=== PATIENT | female | born 1945 | race Caucasian/White ===

== ENCOUNTER 2023-09-30 13:00 | Outpatient (RCR) | payer MEDICARE, OTHER, SELFPAY ==
--- NOTE | 2023-05-08 14:46 | PT.OPEX ---
PT [place] Outpatient Eval PT [facility] Outpatient Eval Start: 05/07/23 16:50 Freq: Status: Active Protocol: Document 05/08/23 12:18 MLS (Rec: 05/08/23 14:43 MLS [id number]) E-signed By Yeimi Ho DPT Physical Therapy Outpatient Evaluation Insurance Information Recert Due Date 08/05/23 Insurance Name Medicare B Insurance Information/Comments Medical Diagnosis M17.12 Unilateral primary osteoarthritis left knee Treating Diagnosis M25.562 Pain in left knee Referring MD Demetrio Pavon M.D. Subjective Subjective Patient comes to physical therapy with reports of left knee pain that started this past January. She reports that it started with pain behind her left knee. She states that she was sitting on a window bench for long periods of time, while waiting for someone at the hospital. She had been there five days in a row, and that irritated her knee. In February, she had an ultrasound to rule out a blood clot and bakers cyst. It was negative for significant findings. According to the patient, she then had xrays on both knees, which showed significant OA in her left knee. She reports that she had a cortisone shot on February 26, which helped to decrease the intensity of her pain. She states that she does get pain in the back of her left thigh at times, that radiates from her knee up to her left glut. She reports her pain as dull and achy, not sharp not stabbing. No complaints of numbness and tingling. She reports that she did use a cane when it was bad, but since then has not been using it. She states she keeps it in the back of her car for walking longer distances as needed. 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 She reports that she currently is not exercising but does have a recumbent bike at home. 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 [employer] Precautions Treatment Precautions/Contraindications PMH: hysterectomy, controlled high blood pressure, gallbladder surgery, arthritis Weight Bearing Status Full Weight Bearing Therapy Limitations/Systems Review Not Limited Objective Other/Pertinent Objective GAIT/FUNCTIONAL MOBILITY Single leg stance: 3 second stance, instability noted Squat: Mild pain in left knee with mini squat Left knee valgus KNEE ROM Right knee: 0-130 Left knee: 0-120 Pain in left knee with heel walking No pain with toe walking HIP ROM Flexion: WNL Extension: WNL Internal Rotation: WNL External Rotation: WNL Abduction: WNL LLE MMT: Hip flexion: R 4-/5 L 4-/5 Hip abduction: R 4-/5 L 4-/5 Hip extension: R 5/5 L 5/5 Knee flexion: R 5/5 L 5/5 Knee extension: R 4+/5 L 4/5 SPECIAL TEST -Anterior drawer: negative -Posterior Drawer: negative -Joint line tenderness: tenderness to left lateral joint line and inferior patella -March Compression: negative TX: Access Code: [email or web address] URL: [email or web address] Date: 05/08/2023 Prepared by: Yeimi Ho Exercises - Supine Quad Set - 1 x daily - 4 x weekly - 2 sets - 10 reps - 5 hold - Supine Active Straight Leg Raise - 1 x daily - 4 x weekly - 2 sets - 10 reps - Supine Heel Slides - 1 x daily - 4 x weekly - 2 sets - 10 reps - Supine Gluteal Sets - 1 x daily - 4 x weekly - 2 sets - 10 reps - 5 hold - Supine Bridge - 1 x daily - 4 x weekly - 2 sets - 10 reps - Sidelying Hip Abduction - 1 x daily - 4 x weekly - 3 sets - 10 reps Functional Test Performed & Score 44/80 A score increase of 6 points shows a significant improvement in lower extremity function. Assessment Assessment/Impression Patient is a 78 year old female presenting to physical therapy for evaluation and treatment of left knee pain. Patient presents with significant osteoarthritis in her left knee. 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 Patient appears motivated to participate in physical therapy and presents with a good prognosis to improve mobility, strength, proprioception and return to functional activities with skilled physical therapy intervention. Patient would benefit from skilled physical therapy interventions to facilitate return to prior level of function, improve overall activity tolerance and address any remaining impairments. Primary Functional Limitations endurance, walking, standing, lower extremity weakness Plan of Care Rehabilitation Potential Good Physical Therapy Goals STG: Patient is able to ride her recumbent bike for 20 minutes with <1/10 pain. Patient will demonstrate independence in performance of home exercise program with the use of video and/or handouts in order to optimize functional mobility and reduce risk for re-injury. Patient will report pain levels <1/10 with all activities in order to improve functional mobility at home, work and during functional leisure activities. LTG: Patient will be able to stand and shop for one hour without pain. Patient will be able to ascend /descend 1 flight of stairs with <1/10 pain. Patient will be able to walk up to one mile without pain. Coordination/Communication With Referral Source Treatment Plan/Direct Interventions Gait Training,Manual Therapy, Therapeutic Activities, Therapeutic Exercises Frequency/Duration 2x/week for 3-4 weeks with progression to 1x/week and on own as tolerated Patient Will Be Discharged From Therapy Independently Progressing Evaluation Billing Untimed Code Treatment Minutes 30 Complexity Low Certification Information Physician Comment/Change : Physician NPI Number #
== END 2023-10-03 11:24 | disposition home or self-care (01) ==
PROVIDERS: PCP Family Medicine; Visit Provider Orthopaedic Surgery Sports Medicine
DX: M17.12 Unilateral primary osteoarthritis, left knee (principal); M25.562 Pain in left knee; Z51.89 Encounter for other specified aftercare
CPT/HCPCS: 97110; 97140; 97161

== ENCOUNTER 2023-12-23 06:58 | Day surgery (SDC) | payer MEDICARE, OTHER, SELFPAY ==
[2023-12-23] VITALS (24 sets, daily range): BP systolic 90–146; BP diastolic 55–78; PULSE 49–60; RESP 12–18; TEMP 35.3–36.9; O2SAT 88–96; BMI 36.0
--- OUTSIDE RECORDS SUMMARY | 2023-12-23 07:01 | XMS_ITS | Clinical Summary ---
Author Name Unknown Organization [facility] Address [place], [place] [address] Care Team Providers Care Talent Acquisition Relationship Manager Name Role Phone Gerry Russo Windy Unavailable [phone] Liz Dee MD Primary Care Provider Allergies Active Allergy Reactions Criticality Noted Date Comments Oxymetazoline Syncope Pseudoephedrine Intolerance-Can't Take Unlisted Allergen (Include Detail In Comments) 10/03/2009 Dial Soap Medications Medication Sig Dispensed Refills Start Date End Date Status MULTIVITAMIN ORAL daily 0 Active ASPIRIN 81 MG TAB, DELAYED RELEASE take 1 tablet (81mg) by oral route once daily 0 Active CALCIUM 600 + D(3) 600 MG-125 UNIT TAB Take 2 tablets daily 0 Active cholecalciferol (VITAMIN D) 1,000 unit capsuleIndications:V itamin D deficiency Take 2 capsules by mouth once daily. 0 11/05/2011 Active omega-3 fatty acids-vitamin E (FISH OIL) 1,000 mg CapIndications:Low HDL (under 40) Take 1 capsule by mouth 2 times daily. 0 11/05/2011 Active albuterol HFA (PRO-AIR; VENTOLIN; PROVENTIL) 90 mcg/actuation inhalerIndications:B ronchitis with bronchospasm INHALE 2 PUFFS BY MOUTH EVERY 4 HOURS IF NEEDED FOR WHEEZING (COUGH). 8.5 Each 11/20/2022 Active atenoloL (TENORMIN) 100 mg tabletIndications:Es sential hypertension Take 1 Tablet (100 mg) by mouth once daily. 90 Tablet 3 05/08/2023 Active FLUoxetine (PROZAC) 10 mg capsuleIndications:A nxiety Take 1 Capsule (10 mg) by mouth every morning. Take with 20 mg for a total dose of 30 mg daily 90 Capsule 3 05/08/2023 Active FLUoxetine (PROZAC) 20 mg capsuleIndications:A nxiety Take 1 Capsule (20 mg) by mouth every morning. TAKE 1 CAPSULE EVERY MORNING WITH 10 MG CAPSULE FOR A TOTAL OF 30 MG DAILY. 90 Capsule 3 05/08/2023 Active lisinopriL (PRINIVIL; ZESTRIL) 40 mg tabletIndications:Es sential hypertension Take 1 Tablet (40 mg) by mouth once daily. 90 Tablet 3 05/08/2023 Active pravastatin (PRAVACHOL) 40 mg tabletIndications:Hy perlipidemia, unspecified hyperlipidemia type Take 1 Tablet (40 mg) by mouth at bedtime. 90 Tablet 3 05/08/2023 Active benzonatate (TESSALON) 200 mg capsuleIndications:C ough, unspecified type Take 1 Capsule (200 mg) by mouth 3 times daily if needed for Cough. 21 Capsule 12/16/2023 Active solifenacin (VESICARE) 10 mg tablet Take 1 tablet(s) every day by oral route. 10/01/2023 Active tolterodine (DETROL LA) 2 mg Extended-Release capsule Active tolterodine (DETROL LA) 4 mg Extended-Release capsuleIndications:O veractive bladder Take 1 Capsule (4 mg) by mouth once daily. 30 Capsule 06/17/2023 4 Discontinue d(*Patient states no longer taking) Active Problems Problem Noted Date Diagnosed Date Low HDL (under 40) 11/05/2011 Mole (skin) 04/17/2011 ACP (advance care planning) 10/23/2010 Overview: Discussed ACP 10/23/2010. Referred 11/05/2011 Dermatophytosis of unspecified site 10/03/2009 GERD (gastroesophageal reflux disease) 0 Overview: Does well with occasional Zantac. ABDOMINAL MASS( Epigastric) 09/28/2008 Overview: See us and CT of 09/2008. 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 10/23/2010 Unspecified essential hypertension Sensorineural hearing loss, bilateral Overview: right ear; Severe obesity (BMI 35.0-39.9) with comorbidity Encounters Date Type Department Care Team Description 12/19/2023 9:20 AM CDT Preop Visit [facility] [address] [place] [address] Javi Larry DO Preoperative Exam (LEFT knee replacement - 12/22 - [facility] ) 12/19/2023 Travel 12/16/2023 2:40 PM CDT Office Visit [facility] [address] [place] [address] Page Toledo MD Cough (1 week); Sinus Problem (1 week) 12/16/2023 Travel from Last 3 Months Immunizations Name Administration Dates Next Due AMB INFLUENZA IIV3 (AGE 65+ YRS) PF (Flu Clinic Only) 05/18/2019,06/05/2017 AMB Influenza, IIV4 PF (=>6 mos Flulaval,Fluzone Fluarix)(Flu Clinic Only) 05/14/2014 Amb Influenza, Inact (High-d ose) (Flu Clinic Only) 06/08/2016,05/25/2015,05/14/2014 Amb Influenza, Inactivated A IIV4 (Age 65+ Years) Preserv Free 06/13/2020 COVID-19 Vaccine Spikevax (M oderna 50mcg/0.5mL) 12YO+ [id number] Formula PF 06/05/2023 COVID-19 vaccine (Moderna 100mcg/0.5mL) PF, MDV 06/22/2021 COVID-19 vaccine (Pfizer-Bio NTech 30mcg/0.3mL) 12YO+ BIVALENT PF, MDV 05/03/2022 Influenza Virus, Unspecified 05/25/2015 Influenza, High-dose Inactivated 06/08/2016 Influenza, IIV3 (Age 6-35 mos) 3,05/13/2012,05/30/2011,2009 Influenza, IIV3 (Age >=3 years) 05/19/20 13,05/05/2012,05/30/2011,2009,05/05/2009,06/05/2008 Influenza, IIV4 05/14/2014 Influenza, Inactivated AIIV4 (Age 65+ Years) Preserv Free 05/08/2023,05/03/2022,04/13/2021 Influenza, Inactivated IIV3 (Age 65+ Years) Preserv Free 06/04/2018 Pneumococcal Poly,23-Valent (Pneumovax) 11/03/2012 Pneumococcal conj 13-Valent (Prevnar 13) 11/30/2014 Tdap 12/05/2016,11/11/2006 Tdap, Unspecified 12/05/2016 Zoster (Shingrix-RZV, recombinant) 09/22/2018, Zoster (Zostavax-ZVL, live) 09/24/2007 Family History Medical History Relation Name Comments Hypertension Brother 1 Orlin Hypertension Brother 2 [place] Cancer Father Kavon Hypertension Father Kavon Cancer-breast Mother Mojgan Moore Hypertension Mother Mojgan Moore Hypertension Sister Liza Anesthesia Problem No Family History Blood Disease No Family History Relation Name Status Comments Brother 1 Orlin Alive Brother 2 [place] Alive Father Kavon (Age 70) lung cance r Mother Mojgan Moore Alive breast cancer Sister Liza Alive Social History Tobacco Use Types Packs/Day Years Used Date Smoking Tobacco: Former Cigarettes 0.5 19 0 12/09/1965 - 08/05/1984 Smokeless Tobacco: Never Tobacco Cessation:Counseling Given: Yes Alcohol Use Standard Drinks/Week Comments Yes 2 (1 standard drink = 0.6 oz pur e alcohol) occasional PHQ-2 Answer Date Recorded PHQ-2 TOTAL SCORE 0 05/08/2023 Social Connections Answer Date Recorded Frequency of Communication with Friends and Fami ly 0 05/08/2023 Financial Resource Strain Answer Date R ecorded Difficulty of Paying Living Expenses 3 05/08/2023 Difficulty of Paying Living Expenses Not on file 05/08/2023 Food Insecurity Answer Date Recorded Worried About Running Out of Food in the Last Ye ar 1 05/08/2023 Transportation Needs Answer Date Record ed Lack of Transportation (Medical) 1 05/08/2023 Housing Stability Answer Date Recorded Unable to Pay for Housing in the Last Year 1 05/08/2023 Sex and Gender Information Value Date Recorded Sex Assigned at Not on file Gender Identity Not on file Sexual Orientation Not on file Obstetrics History Para Term AB IAB SAB Ectopic Multiple Livin g Live Births 0 0 0 0 0 0 0 0 0 0 Comments One adopted daughter Last Filed Vital Signs Vital Sign Reading Time Taken Comments Blood Pressure 154/75 12/19/2023 9:38 AM CDT Pulse 55 12/19/2023 9:35 AM CDT Temperature 36.7 ??C (98 ??F) 02/07/2023 2:19 PM CDT Respiratory Rate 18 12/05/2018 10:5 2 AM CDT Oxygen Saturation 98% 12/19/2023 9:35 AM CDT Inhaled Oxygen Concentration - - Weight 98.3 kg (216 lb 11.2 oz) 12/19/2023 9:35 AM CDT Height 166.4 cm (5' 5.5) 12/19/2023 9:35 AM CDT Body Mass Index 35.51 12/19/2023 9:35 AM CDT Plan of Treatment Health Maintenance Due Date Last Done Comments Influenza for age 65+ 04/05/2024 05/08/2023 , 05/03/2022, 04/13/2021, Additional history exists Depression screening for age 12+ 05/08/2024 05/08/2023, 05/08/2023, 05/03/2022, Additional history exists Medicare Wellness for age 65+ 05/08/2024, 05/03/2022, 04/13/2021, Additional history exists BMI (ht and wt on same day) for age 18+ 12/18/2024 12/19/2023, 06/05/2023, 05/08/2023, Additional history exists Tetanus booster 12/05/2026 12/05/2016, 0 10/2016, 11/11/2006 Pneumococcal series for age 65+ Completed 5, 11/03/2012 Tdap Completed 12/05/2016, 10/2016, 11/11/2006 Hepatitis C screening for ag e 18-79 Completed 12/23/2017 Zoster (shingles) series for age 50+ Completed 09/22/2018, 06/23/2018, 09/24/2007 DEXA/DXA scan for age 65+ Completed 2018, 11/10/2013, 09/30/2007 COVID-19 vaccine series Completed 06/05/20, 05/03/2022, 06/22/2021, Additional history exists Procedures Procedure Name Priority Date/Time Associated Diagnosis Comments ID ECG ROUTINE ECG W/LEAST 12 LDS W/I&R Routine 12/20/2023 12:41 PM CDT Pre-op evaluation ID READING EKG - NO CHARGE, COMP ONLY Routine 12/20/2023 12:40 PM CDT Pre-op evaluation POTASSIUM Routine 12/19/2023 10:02 AM CDT Pre-op evaluation HEMOGLOBIN Routine 12/19/2023 10:02 AM CDT Pre-op evaluation XR DXA BONE DENSITY 2 SITES AXIAL Routine 12/08/2018 11:36 AM CDT Menopause ANTI HCV Routine 12/23/2017 8:45 AM CDT Need for hepatitis C screening test from Last 3 Months or Most Recently Relevant to Health Maintenance Results * ID ECG ROUTINE ECG W/LEAST 12 LDS W/I&R (12/20/2023 12:41 PM CDT) Javi Larry DO [facility] - CARDI[facility]ASC[facility] * ID READING EKG - NO CHARGE, COMP ONLY (12/20/2023 12:40 PM CDT) Javi Larry DO PB - PROVIDER READIN GS * HEMOGLOBIN (12/19/2023 10:02 AM CDT) HEMOGLOBIN 13.2 12.0 - 16.0 g/dL 12/19/2023 10:17 AM CDT [facility] MCV 88 80 - 100 fL 12/19/2023 10:17 AM CDT [facility] Blood BLOOD SPECIMEN / Unknown Venipuncture / Unknown 12/19/2023 10:02 AM CDT 12/19/2023 10:03 AM CDT Javi Larry DO HEMATOLOGY [facility] [address] [place] [address], * POTASSIUM (12/19/2023 10:02 AM CDT) Pathologist [facility] POTASSIUM 4.2 3.5 - 5.1 mmol/L 12/19/2023 6:03 PM CDT [facility] Blood BLOOD SPECIMEN / Unknown Venipuncture / Unknown 12/19/2023 10:02 AM CDT 12/19/2023 10:03 AM CDT Javi Larry DO [facility] [address] [address], [place] * XR DXA BONE DENSITY 2 SITES AXIAL (12/08/2018 11:36 AM CDT) Anatomical Region Laterality Modality Spine, HIPS, HIPL, HIPR Other Narrative 12/17/2018 7:46 AM CDT Please see scanned document for results of this study. Liz Dee MD DEXA * ANTI HCV [[id number]] (12/23/2017 8:45 AM CDT) HEPATITIS C ANTIBODY Non-React marvin Non-React marvin 12/23/2017 4:40 PM CDT [facility] Comment:Antibodies to HCV no t detected; does not exclude the possibility of exposure to HCV. Blood BLOOD SPECIMEN / Unknown Venipuncture / Unknown 12/23/2017 8:45 AM CDT 12/23/2017 8:45 AM CDT Liz Dee MD SEND OUTS [facility] [address] [place] [address], from Last 3 Months or Most Recently Relevant to Health Maintenance Advance Directives Documents on File Type Date Recorded Patient Window Trimmer Expl anation Healthcare Directive 12/22/2018 9:53 AM HE ALTH CARE DIRECTIVE, [facility], 12/18/18 Care Teams Talent Acquisition Relationship Manager Relationship Specialty Start Date End Date Liz Dee MD [address] [place] [address] PCP - General Family Practice 11/16/13 Gerry Russo [address] [place] [id number] Assistant Statistician 11/05/11
--- OUTSIDE RECORDS SUMMARY | 2023-12-23 07:02 | XMS_ITS | Continuity of Care Document ---
Author Name Unknown Address [address] [place] [address] Phone [phone] Organization [facility] [place] Address [address] [place] [address] Care Team Providers Care Performance Specialist Name Role Phone CYNTHIA CHA Primary Care Provider [phone] Assessment No assessment recorded. Plan of Treatment Reminders Order Date Submit Date Provider Last Modified By Organization Details Last Modified Time Details Appointments None recorded. Lab urinalysis, dipstick 2023 024 [facility], [address], [address], [place], [address], 4 11:42:48 urinalysis, microscopic 2023 024 [facility], [address], [address], [place], [address], 4 11:42:50 Referral None recorded. Procedures None recorded. Surgeries None recorded. Imaging None recorded. Medication Orders solifenacin 10 mg tablet 2023 024 [email or web address] 2 [facility], [address], [place], [address], 11:05:54 Patient TargetsNo targets recorded. Patient Instructions Encounter Date Encounter Id Patient Instructions Last Modified By Organization Details Last Modified Time 10/01/2023 [id number] Microscopic Hematuria: -05/02/23: UA 3-5 RBC's, no WBC's/bacteria/epi thelial cells; UC <10,000 CFU/mL multiple organisms -CTU was done that showed punctate nonobstructing stones and mildly enlarging lower pole left renal cyst measuring 3 cm previously 1.4 cm. -Cystoscopy normal 09/2023 -In case of negative results, she would need her next UA check in one year and return in 3-5 years unless she develops additional voiding symptoms including gross hematuria -For persistent or recurrent asymptomatic microhematuria after initial negative urologic work-up, repeat evaluation within three to five years should be considered Urinary frequency and nocturia: -Reviewed overactive bladder care pathway -Previously failed tolterodine. -She was started on solifenacin 10mg daily at her last appointment which is working well for her. Refill sent to pharmacy. Follow up in one year, sooner if issues. [email or web address] Not available 10/01/2023 11:06:29 Reason for Referral Referring Physician: Caro Alvarez, Urology, Encounter Date: 06/25/2023 Problems Name Status Onset Date Resolution Date Notes Provider Name and Address Organization Details Recorded Time Microscopic hematuria Active 024 Bridger Meath null, [facility] 09/09/2023 16:27:39 Nocturia Active 024 Bridger Meath null, [facility] 09/09/2023 16:27:44 Increased frequency of urination Active 024 Bridger Meath null, [facility] 09/09/2023 16:27:49 Hypertensive disorder Active 024 Bridger Meath null, [facility] 09/09/2023 16:31:15 Dermatophytosis Active 024 Bridger Meath null, [facility] 09/09/2023 16:31:22 Gastroesophageal reflux disease Active 024 Bridger Meath null, [facility] 09/09/2023 16:31:30 Sensorineural hearing loss of bilateral ears Active 024 Bridger Meath null, [facility] 09/09/2023 16:31:41 Osteoarthritis Active 024 Bridger Meath null, [facility] 09/09/2023 16:31:52 Problem Notes None recorded. Procedures Surgical History Date Name Laterality Status Provider Name and Address Organization Details Recorded Time 10/01/19 24 COMPLEX VISIT completed MAY CONNER [address] [place] [address],[address], [address], [facility] 09/23/2023 14:52:35 10/01/19 24 Bladder Scan completed Emmanuelle edmondson [facility] 10/01/2023 10:55:57 09/17/19 24 Cystoscopy- female completed Agustín Oneal MD [address] [place] [address],[address], [address], [facility] 09/17/2023 14:47:11 06/25/20 23 Past Data Reviewed completed MAY CONNER [address] [place] [address],[address], [place], [address], [facility] 06/19/2023 16:34:09 06/25/20 23 In and Out Catheterization- female completed MAY CONNER [address] [place] [address],[address], [place], [address], [facility] 06/25/2023 15:51:49 04/14/20 13 Diagnostic colonoscopy completed Not Available Health Note 06/23/2023 20:23:44 Laparoscopic cholecystectomy completed Not Available Health Note 06/23/2023 20:23:44 Partial hysterectomy completed Not Available Health Note 06/23/2023 20:23:44 Imaging Results None recorded. Procedure Notes None recorded. Medical Equipment None Reported. Allergies No known drug allergies Medications Name Sig Start Date Stop Date Status Note LastModified by Organization Details LastModified Time tolterodi ne ER 2 mg capsule,e xtended release 24 hr 09/09 completed Not Available Not Available Not Available pravastat in 40 mg tablet 40mg 1/day active Not Available Not Available No t Available atenolol 100 mg tablet 100mg 1/day active Not Available Not Available No t Available tolterodi ne ER 4 mg capsule,e xtended release 24 hr 10/01 completed HN: Patient reports no longer taking Not Available Not Available Not Available prednison e 20 mg tablet 09/09 completed Not Available Not Available Not Available benzonata te 100 mg capsule 09/09 completed Not Available Not Available Not Available fluoxetin e 10 mg capsule 09/09 completed Not Available Not Available Not Available codeine 10 mg-guaife nesin 100 mg/5 mL oral liquid TAKE 5 TO 10 ML BY MOUTH EVERY 6 HOURS NEEDED FOR COUGH 09/09 completed Not Available Not Available Not Available methylpre dnisolone 4 mg tablets in a dose pack FOLLOW PACKAGE DIRECTIO NS 09/09 completed Not Available Not Available Not Available albuterol sulfate HFA 90 mcg/actua tion aerosol inhaler INHALE 2 PUFFS BY MOUTH EVERY 4 HOURS IF NEEDED FOR WHEEZING (COUGH). active Not Available Not Available No t Available lisinopri l 40 mg tablet active Not Available Not Available Not Available fluoxetin e 20 mg capsule active Not Available Not Available Not Available doxycycli ne hyclate 100 mg tablet 09/09 completed Not Available Not Available Not Available solifenac in 10 mg tablet Take 1 tablet(s ) every day by oral route. 2023 active Not Available Not Available Not Avai lable fluoxetin e 20 1/day 09/09 completed Not Available Not Available Not Available Fish Oil Don't know 1/day active Not Available Not Available No t Available lisinopri l 40mg 1/day 09/09 completed Not Available Not Available Not Available Prilosec active Not Available Not Avai lable Not Available multivita min Don't know 1/day active Not Available Not Available No t Available Paxlovid 300 mg (150 mg x 2)-100 mg tablets in a dose pack TK 2 NIRMATRE LVIR TS AND 1 RITONAVI R T TOGETHER PO BID FOR 5 DAYS TWICE DAILY FOR 5 DAYS 09/09 completed Not Available Not Available Not Available Vitals Date Recorded Body height Provider Name an d Address Organization Details Last Updated DateTime 10/01/2023 165.1 cm Emmanuelle Hughes [place] [facility] 10/01/2023 10:42:12 Social History Question Answer Notes LastModified by Organizat ion Details LastModified Time Tobacco Smoking Status Former Smoker Not Available Health Note 09/27/2023 13:59:12 What Is Your Level Of Alcohol Consumption? Occasional 2-3 Drinks Per Week. Information not available 10/01/2023 What Is Your Level Of Caffeine Consumption? Occasional [email or web address] Information not available 09/27/2023 How Much Tobacco Do You Chew? None [email or web address] Information not available 09/27/2023 Do You Or Have You Ever Used E-cigarettes Or Vape? Never Used Electronic Cigarettes [email or web address] Information not available 09/27/2023 When Did You Quit Smoking? 16+yearssinvivian nikiprimo Information not available 10/01/2023 What Was The Date Of Your Most Recent Tobacco Screening? 10/01/2023 [email or web address] Information not available 09/27/2023 Have You Ever Been Counseled For Unhealthy Alcohol Use? No Information not available 10/01/2023 What Is Your Relationship Status? [email or web address] Information not available 06/23/2023 Are You Sexually Active? No [email or web address] Information not available 09/27/2023 Do You Or Have You Ever Used Smokeless Tobacco? Never Used Smokeless Tobacco [email or web address] Information not available 09/27/2023 How Much Tobacco Do You Smoke? 0.25 PPD ameath Information not available 09/17/2023 Do You Use Any Illicit Or Recreational Drugs? No [email or web address] Information not available 09/27/2023 Has Tobacco Cessation Counseling Been Provided? No Information not available 06/25/2023 How Many Years Have You Smoked Tobacco? 20 [email or web address] Information not available 09/27/2023 Do You Or Have You Ever Used Any Other Forms Of Tobacco Or Nicotine? No Information not available 06/25/2023 How Many Days In The Past Year Have You Consumed 4 Or More Drinks? 0 [email or web address] Information not available 09/27/2023 Sex: Female Functional Status None recorded. Mental Status None recorded. Family History Relationship Description Onset Age of this Age Resolved Age Notes Mother Family history of br east cancer Mother Family history of cancer Father Family history of cancer Medical History Condition Response High Blood Pressure Y Kidney Stones N Depression Y Lung Disease N GERD/Acid Reflux Y Sexually Transmitted Infection N Diabetes N Bleeding Disorder N Cancer N High Cholesterol N Heart Disease N Gynecological History Statement/Question Response If Post Menopausal, Age at Menopause 70 Hormone Therapy N Sexually Active? N Obstetrics History GPAL:G 0 P 0 0 0 0 Immunizations Vaccine Type Date Status Provider Name and Address Organization Details Recorded Time influenza, trivalent, adjuvanted 05/18/2019 completed Bridger Meath null, [facility] 09/17/2023 09:56:04 influenza, trivalent, adjuvanted 06/04/2018 completed Bridger Meath null, [facility] 09/17/2023 09:56:04 influenza, trivalent, adjuvanted 06/05/2017 completed Bridger Meath null, [facility] 09/17/2023 09:56:04 zoster recombinant 09/23/2018 completed Bridger Meath null, [facility] 09/17/2023 09:56:04 zoster recombinant 06/25/2018 completed Bridger Meath null, [facility] 09/17/2023 09:56:04 Influenza vaccine, quadrivalent, adjuvanted 04/13/2021 completed Bridger Meath null, [facility] 09/17/2023 09:56:04 Influenza vaccine, quadrivalent, adjuvanted 05/03/2022 completed Bridger Meath null, [facility] 09/17/2023 09:56:04 Influenza vaccine, quadrivalent, adjuvanted 05/08/2023 completed Bridger Meath null, [facility] 09/17/2023 09:56:04 Influenza vaccine, quadrivalent, adjuvanted 06/13/2020 completed Bridger Meath null, [facility] 09/17/2023 09:56:04 COVID-19, mRNA, LNP-S, PF, 100 mcg/0.5mL dose or 50 mcg/0.25mL dose 09/30/2020 completed Bridger Meath null, [facility] 09/17/2023 09:56:04 COVID-19, mRNA, LNP-S, PF, 100 mcg/0.5mL dose or 50 mcg/0.25mL dose 10/28/2020 completed Bridger Meath null, [facility] 09/17/2023 09:56:04 COVID-19, mRNA, LNP-S, PF, 100 mcg/0.5mL dose or 50 mcg/0.25mL dose 06/22/2021 completed Bridger Meath null, [facility] 09/17/2023 09:56:04 COVID-19, mRNA, LNP-S, bivalent, PF, 30 mcg/0.3 mL dose 05/03/2022 completed Bridger Meath null, [facility] 09/17/2023 09:56:05 COVID-19, mRNA, LNP-S, PF, 50 mcg/0.5 mL 06/05/2023 completed Bridger Meath null, [facility] 09/17/2023 09:56:05 pneumococcal polysaccharide PPV23 11/03/2012 completed Bridger Meath null, [facility] 09/17/2023 09:56:05 influenza, unspecified formulation 05/25/2015 completed Bridger Meath null, [facility] 09/17/2023 09:56:05 Tdap 11/11/2006 completed Bridger Meath null, [facility] 09/17/2023 09:56:05 Tdap 12/05/2016 completed Bridger Meath null, [facility] 09/17/2023 09:56:05 Pneumococcal conjugate PCV 13 11/30/2014 completed Bridger Meath null, [facility] 09/17/2023 09:56:05 zoster live 09/24/2007 completed Bridger Meath null, [facility] 09/17/2023 09:56:05 Influenza, high dose seasonal 06/08/2016 completed Bridger Meath null, [facility] 09/17/2023 09:56:05 Influenza, seasonal, injectable, preservative free 05/13/2012 completed Bridger Meath null, [facility] 09/17/2023 09:56:05 Influenza, seasonal, injectable, preservative free 05/16/2010 completed Bridger Meath null, [facility] 09/17/2023 09:56:05 Influenza, seasonal, injectable, preservative free 05/19/2013 completed Bridger Meath null, [facility] 09/17/2023 09:56:05 Influenza, seasonal, injectable, preservative free 05/30/2011 completed Bridger Meath null, [facility] 09/17/2023 09:56:05 DTaP, unspecified formulation 12/05/2016 completed Bridger Meath null, [facility] 09/17/2023 09:56:05 influenza, injectable, quadrivalent, preservative free 05/14/2014 completed Bridger Meath null, [facility] 09/17/2023 09:56:05 SARS-COV-2 (COVID-19) vaccine, UNSPECIFIED 05/14/2023 completed Bridger Meath null, [facility] 09/17/2023 09:56:04 zoster live 12/21/2015 completed Bridger Meath null, [facility] 09/17/2023 09:56:05 influenza, unspecified formulation 04/16/2023 completed Bridger Meath null, [facility] 09/17/2023 09:56:05 pneumococcal, unspecified formulation 11/24/2016 completed Bridger Meath null, [facility] 09/17/2023 09:56:05 Past Encounters Encounter ID Performer Location Encounter Start Date Encounter Closed Date Diagnosis/Indication Diagnosis SNOMED-CT Code [id number] Agustín Oneal MD [facility] [address] [place] [address] 09/17/2023 09:03:25 09/17/2023 17:23:34 Persistent microscopic hematuria [id number] Screening for alcohol abuse [id number] MAY CONNER [facility] [address] [place] [address],[address] [place] [address] 10/01/2023 10:39:43 10/01/2023 11:21:22 Microscopic hematuria [id number] Nocturia [id number] Increased frequency of urination [id number] Health Concerns Section Related Observation LastModified by Organization Detai ls LastModified Time None Recorded Concern Status LastModified by Organization Details LastModified Time None Recorded Payers Encounter Date Sequence Insurance Name Policy Number Policy Murphy Covered Member ID Murphy Member ID Guarantor Name 10/01/2023 1 [place]: [employer] Yue Alexander [id number] Yue Nesseth 10/01/2023 2 [employer] - FOR LIFE (MEDICARE SUPPLEMENT) Yue More [id number] Yue Alexander Notes Date Note Type Note Provider Name and Address Organization Details Recorded Time 10/01/2023 text/html HPI Notes: Follo w up for nocturia and urinary frequency. She was started on solifenacin at her last appointment. Cysto done 09/17/23 for microscopic hematuria and was normal. DF: not bothered by frequency. NF: 2 times Pads: none Happy on medication, no side effects. Symptoms since last appointment: 90% Better Happy with current treatment plan: yes Urogenital Distress Inventory (ASUNCION-6): 4 Incontinence Impact Questionnaire (IIQ-7): 6 MAY CONNER [address] [place] [address],[address], [address], [facility] 10/01/2023 12:44:23 OBGyn Episode No OBEpisode recorded.
--- NOTE | 2023-12-23 07:24 | W.PM.H&PU ---
History & Physical Update History & Physical Update H&P Reviewed and patient assessed: No changes noted
--- NOTE | 2023-12-23 07:25 | XR_ITS ---
Patient: JULIAN BROWN Facility:?[facility] Patient ID:?[id number] Site Patient ID:?[id number]. Site :?[id number] Study:?XRay-Extremity Left KNEE 2V-12/23/2023 1:08:41 PM Ordering Physician:MUNA Final Report: INDICATION: Postop evaluation. FINDINGS: Two views of the left knee show left knee arthroplasty changes which appear intact. No evidence of acute fracture or dislocation. No other bony or soft tissue abnormalities identified. Dictated by Nigel Clarke MD @ 12/23/2023 3:11:52 PM Signed by:?Nigel Clarke MD @12/23/2023 3:11:52 PM (Electronic Signature)
[2023-12-23] MEDS: ACETAMINOPHEN 500 MG TABLET 1000 MG PO ×3 (07:40→18:40)
[2023-12-23] MEDS: OXYCODONE (CR) 10 MG TAB.ER.12H PO (07:40)
[2023-12-23] MEDS: SODIUM CHLORIDE 0.9 % (FLUSH) 10 ML SYRINGE IVF (08:03)
[2023-12-23] MEDS: LACTATED RINGERS 1000 ML 1,000 ML 100 ML IV ×2 (08:03→09:45)
[2023-12-23] MEDS: MIDAZOLAM HCL 1 MG/ML inj IVP (08:08)
[2023-12-23] MEDS: fentaNYL 100 MCG/2 ML inj IVP (08:08)
--- NOTE | 2023-12-23 08:17 | SUR.PREOP ---
TIME?OUT:?0808 PT/RN/MDA?VERIFICATION?OF?SURGICAL?SITE,?PROCEDURE,?AND?CONSENT OBTAINED?PRIOR?TO?INVASIVE?PROCEDURE.
[2023-12-23] MEDS: CEFAZOLIN 2 GM in 0.9 % SODIUM CHLORIDE Mini-bag 100 ML IVPB ×3 (08:45→21:17)
[2023-12-23] MEDS: TRANEXAMIC ACID 100 MG/ML INJ 1000 MG IV (08:50)
--- NOTE | 2023-12-23 10:00 | SUR.OPER ---
Code blue called during procedure for left total knee arthroplasty for respiratory distress.
--- NOTE | 2023-12-23 10:54 | PM.ORPRC ---
Procedure Note Date of procedure: 12/23/23 Procedure: PREOPERATIVE DIAGNOSIS: 1. Left knee osteoarthritis, primary, severe POSTOPERATIVE DIAGNOSIS: 1. Left knee osteoarthritis, primary, severe PROCEDURE: 1. Left total knee arthroplasty - subvastus SURGEON: Demetrio Pavon MD. ACTIVE DIRECTORY SYSTEMS ADMINISTRATOR: Patrice James PA-C- Of note, a skilled hair or beauty salon assistant was critical for this case to aid in patient positioning, tissue retraction, limb manipulation/positioning, and closure. ANESTHESIA: Spinal anesthetic EBL: 100ml IMPLANTS: DePuy J&J all cemented TKA - Attune PS femur size 6 narrow, size for tibia, 5 poly spacer, 38 mm patella TOURNIQUET: 95 minutes at 300 torr COMPLICATIONS: A respiratory code was called during the case. The patient had a coughing spell which constricted her airway and bronchial system. Anesthesia was able to mask the patient in increase her option and awaken her from the sedation. Initially, it was felt that intubation may be warranted, but given her difficult airway access, it was felt that the spinal anesthetic was sufficient for pain control and some ketamine would be adequate. During this time of increased need for exposure to the airway, the wound was packed with laps, covered with a sterile towel, sealed with Ioban. Then, a 2nd tell and I band were utilized. Finally, a sterile 3 cord drape was wrapped around the limb. The timing of this was while we had already made our femoral preparation and proximal tibial cut. Following yazdanism of respiratory status for the patient to baseline, we were able to proceed with surgery. We sterilely core prepped around the wound and the existing base level I band, reapplied an extremity drape over top of everything, new stockinette, and thoroughly irrigated with normal saline. INDICATIONS: The patient is a pleasant 78-year-old female who has experienced severe left knee pain and difficulty bearing weight. Workup included x-rays which revealed severe osteoarthrosis in the knee. Given the deformity, the dysfunction, and the pain, as well as the failure of nonoperative management, recommendation was made for surgery. FINDINGS: Full-thickness chondral loss diffusely throughout the lateral compartment and to a lesser degree patellofemoral and medial compartments. Moderate effusion upon entering the joint. DESCRIPTION OF PROCEDURE: Following a thorough discussion of risks, benefits, and alternatives consent was obtained and the left knee was marked. The patient was brought to the operating room and placed supine on the operating table. Induction of anesthesia was undertaken. 2 g IV Ancef and 1 g tranexamic acid was administered within 1 hr of incision preoperatively. Proper time-out was performed identifying proper patient, site, procedure. The operative extremity was prepped and draped in the appropriate sterile fashion using ChloraPrep after the patient was positioned supine with all bony prominences well padded. A longitudinal, anterior, midline skin incision was made starting approximately 3cm proximal to the superior pole of the patella and advanced distal to the tibial tubercle. A subvastus approach was utilized. A medial subperiosteal sleeve was created with knife, light elevator and curved osteotome. The retropatellar fatpad was resected and the synovium in the suprapatellar pouch excised to visualize the anterior femoral cortex. Femoral preparation was performed via an intramedullary guide. Step drill allowed access into the femoral canal. The distal cutting guide was placed with 6 ? of valgus and 10 mm cut on the distal femur. Femur was sized using a posterior referencing guide in 5 ? of external rotation. This found have a best fit with the sizing noted above. The 4 in 1 cutting block was then placed, and the distal femur shaped accordingly. The box cut was then created and the trial implant inserted to confirm appropriate fit. We turned our attention to the proximal tibia. Extramedullary guide was utilized for cutting with the goal of being 90 degree cut from the mechanical axis of the tibia in the varus/valgus plane utilizing tibial crest as the primary alignment. Initially a 2 mm resection was performed from the medial tibial plateau. Ultimately, balancing was achieved in both flexion and extension in both varus and valgus. An additional 2 mm did require resection. The knee was able to achieve full extension as well comfortably. The patella was initially measured and found have a thickness of 21 mm. It was resected back to approximately 14 mm. It was sized to be a best fit with as noted above. This was drilled, trial placed. All trials were placed and found to have an excellent stability and balance. At this stage, trial implants were removed, the knee was thoroughly irrigated with normal saline, and the cement was mixed. After irrigation, the knee was thoroughly dried, and cement placed, with the real tibial and femoral implants placed along with the patella. Trial poly spacer was placed and confirmed to have excellent range of motion and full extension, and the real poly spacer opened and inserted. All extra cement was removed, and a 3 min Betadine soak performed. Finally, a final irrigation round with normal saline was performed. Closure performed with 0 PDS and #0 Stratafix for the quad tendon/retinaculum. 2-0 Vicryl/Stratafix for the subcutaneous and 4-0 Monocryl for subcuticular closure. Dressings were applied and the patient was awoken from anesthesia after the tourniquet deflated and transferred the PACU in stable condition. A skilled hair or beauty salon assistant was critical for this case to aid in patient positioning, tissue retraction, bone exposure, limb manipulation/positioning, patient safety, and closure. PLAN: 1. Weight bear as tolerated operative extremity. 2. 23 hr perioperative antibiotics. 3. Ice. 4. PT/OT consults for ambulation assistance/mobility education. 5. Social work consult for discharge planning. 6. DVT prophylaxis with at SCDs and aspirin twice daily.
--- NOTE | 2023-12-23 11:47 | W.ANESCHARGE ---
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
--- NOTE | 2023-12-23 11:48 | P.NB_ITS ---
Nerve Block Nerve Block Time Seen by Provider: 08:10 Date Seen: 12/23/23 Type of block requested by surgeon for post-operative analgesia: adductor canal Side: left Time out performed: Yes Verification of patient name: Yes Verification of date of : Yes Site marking: site marked Name of person performing procedure: Usman Continuous monitoring Was continuous monitoring of O2 sat, B/P, quality assurance monitor final, recorded every 15 minutes?: Yes Procedure Checklist: sterile prep, needles and gloves Ultrasound guided. Images saved: Yes Medications given in 5ml increments after negative aspiration: Ropivicaine %: 0.5 mL: 20 Needle gauge: 20 Decadron (mg): 10 Precedex (mcg): 25 Patient tolerated procedure well: Yes Additional comments: Needle noted adjacent to nerve Block Charges Block Charge (with Pro Fee): Femoral Nerve Use of Ultrasound Machine for Block: Yes- US Guidance/pain block
--- NOTE | 2023-12-23 11:49 | W.PM.NB ---
Nerve Block Nerve Block Time Seen by Provider: 08:10 Date Seen: 12/23/23 Type of block requested by surgeon for post-operative analgesia: geniculars Side: left Time out performed: Yes Verification of patient name: Yes Verification of date of : Yes Site marking: site marked Name of person performing procedure: Usman Continuous monitoring Was continuous monitoring of O2 sat, B/P, hide worker, recorded every 15 minutes?: Yes Procedure Checklist: sterile prep, needles and gloves Medications given in 5ml increments after negative aspiration: Ropivicaine %: 0.5 mL: 9 Needle gauge: 25 Patient tolerated procedure well: Yes Block Charges Block Charge (with Pro Fee): Genicular Nerve Block Use of Ultrasound Machine for Block: No
--- NOTE | 2023-12-23 12:06 | SUR.PHASEI ---
patient stable, meets pacu d/c criteria
[2023-12-23] MEDS: HYDROmorphone 0.5 mg/0.5 ml inj IVP (12:49)
[2023-12-23] MEDS: LACTATED RINGERS 1000 ML 1,000 ML 75 ML IV (12:51)
--- NOTE | 2023-12-23 14:20 | P.IMCN_ITS ---
Date of Consult Consult date: 12/23/23 Requesting Physician: Orthopedics Primary Care Provider: Liz Dee MD Consult Narrative Narrative: HOSPITALIST CONSULT PROCEDURE: Left total knee arthroplasty - subvastus SURGEON: Demetrio Pavon MD. ANESTHESIA: Spinal anesthetic EBL: 100ml COMPLICATIONS: A respiratory code was called during the case. The patient had a coughing spell which constricted her airway and induced a bronchial system. Anesthesia was able to mask the patient in increase her oxygenation and awaken her from the sedation. Initially, it was felt that intubation may be warranted, but given her difficult airway access, it was felt that the spinal anesthetic was sufficient for pain control and some ketamine would be adequate. The hospital medicine team was asked by the orthopedic surgery team to manage the patient's recent respiratory event, HTN. Updated and reviewed the active medical problems, past medical history, past surgical history, social history, allergies and medications in our electronic EMR. PHYSICAL EXAM: CODE STATUS: FULL CODE CONSTITUTIONAL: Conversive, good historian. A/O. Knows setting and context. hoarse voice. Upper airway congestion noted. coughing. VITAL SIGNS: see record. HEENT: Normocephalic, atraumatic. PERRL, EOMI, conjunctivae pink, no scleral icterus. Ears and nose externally normal. Pharynx normal. NECK: No JVD. No carotid bruit, no thyromegaly, no adenopathy. CHEST: Clear to auscultation bilaterally - no wheezes or rhonchi. HEART: S1 and S2 normal. ABDOMEN: Flat, soft, nontender. Normal bowel sounds. Moderately obese. EXTREMITIES: No edema. MUSCULOSKELETAL: left knee - SDI. has been up walking. NEURO: Cranial nerves intact. Mentation normal. Normal affect. SKIN: No rashes, petechiae, concerning changes PSYCHIATRIC: Mentation normal. INVESTIGATIONS: EMR Reviewed; Pre-OP Reviewed DISPOSITION: DVT: Agree with Ortho team decision GI: PO intake PFSH [facility] Medical History (Updated 12/23/23 @ 14:52 by Sandra Nicholson MD) Mild depression ?F32.A - Depression, unspecified (ICD-10) Incontinence ?R32 - Unspecified urinary incontinence (ICD-10) Hyperlipidemia ?E78.5 - Hyperlipidemia, unspecified (ICD-10) Obesity (BMI 30-39.9) ?E66.9 - Obesity, unspecified (ICD-10) [place] (hard of hearing) ?H91.90 - Unspecified hearing loss, unspecified ear (ICD-10) HTN (hypertension) ?I10 - Essential (primary) hypertension (ICD-10) GERD (gastroesophageal reflux disease) ?K21.9 - Gastro-esophageal reflux disease without esophagitis (ICD-10) Abdominal mass ?R19.00 - Intra-abdominal and pelvic swelling, mass and lump, unspecified site (ICD-10) Unspecified essential hypertension ?I10 - Essential (primary) hypertension (ICD-10) Dizziness ?R42 - Dizziness and giddiness (ICD-10) Surgical History (Updated 12/23/23 @ 14:48 by Sandra Nicholson MD) Status post total left knee replacement ?Z96.652 - Presence of left artificial knee joint (ICD-10) Hx of tonsillectomy ?Z90.89 - Acquired absence of other organs (ICD-10) Hx of appendectomy ?Z90.49 - Acquired absence of other specified parts of digestive tract (ICD- 10) History of hysterectomy ?Z90.710 - Acquired absence of both cervix and uterus (ICD-10) History of cholecystectomy ?Z90.49 - Acquired absence of other specified parts of digestive tract (ICD- 10) History of phacoemulsification of cataract of left eye with intraocular lens implantation (08/31/20) ?Z98.42 - Cataract extraction status, left eye (ICD-10) ?Z96.1 - Presence of intraocular lens (ICD-10) History of phacoemulsification of cataract of right eye with intraocular lens implantation (09/14/20) ?Z98.41 - Cataract extraction status, right eye (ICD-10) ?Z96.1 - Presence of intraocular lens (ICD-10) Social History Narrative: -Luis What is your current living situation?: I presently have a place to live Problems where you live: no known problems In the past 12 months, utilities in danger of being shut off: no In past 12 months, lack of transportation kept you from medical appts, meetings, work, or getting things needed for daily living: no In the past 12 mos, have been you worried that your food would run out before you had money to buy more?: never true In the past 12 mos, the food you bought just didn't last and you didn't have money to buy more?: never true Smoking Status: Former smoker What tobacco products do you use: cigarettes Smoking quit date/years: >15 years ago Do you use any of these nicotine containing products: None Second hand tobacco smoke exposure: No How often do you have a drink containing alcohol: monthly or less How many standard drinks containing alcohol do you have on a typical day: 1 or 2 How often do you have six or more drinks on one occasion: Never AUDIT-C Alcohol total score: 1 Non-prescribed substance use: denies use Caffeine: Yes (Pepsi) Are you now , , , , never or living with a partner: Social isolation score (0-1 are the most socially isolated patients): 1 How often does anyone, including family, friends and others, physically hurt you : never How often does anyone, including family, friends and others, insult or talk down to you: never How often does anyone, including family, friends and others, threaten you with harm: never How often does anyone, including family, friends and others, scream or curse at you: never service: No Meds Home Medications and Allergies Home Medications Medication Instructions Recorded Confirmed Type atenolol 100 mg tablet 100 mg PO DAILY 02/26/23 12/23/23 History calcium carbonate (Calcium 600) 600 mg PO QDAY 02/26/23 12/23/23 History fluoxetine 10 mg capsule 10 mg PO DAILY 02/26/23 12/23/23 History fluoxetine 20 mg capsule 20 mg PO DAILY 02/26/23 12/23/23 History lisinopril 40 mg tablet 40 mg PO DAILY 02/26/23 12/23/23 History multivitamin (Multiple Vitamins 1 tab PO QAM 02/26/23 12/20/23 History tablet) omega 8-hza-pkx-fish oil 100 1,000 cap PO BID 02/26/23 12/23/23 History mg-160 mg-1,000 mg capsule (Fish Oil) pravastatin 40 mg tablet 40 mg PO DAILY 09/24/23 12/23/23 History solifenacin 10 mg tablet 10 mg PO DAILY 09/24/23 12/23/23 History cholecalciferol (vitamin D3) 25 50 mcg PO DAILY 12/20/23 12/23/23 History mcg (1,000 unit) tablet Allergies Allergy/AdvReac Type Severity Reaction Status Date / Time oxymetazoline Allergy syncope Verified 12/23/23 07:29 [From Afrin (oxymetazoline)] pseudoephedrine Allergy intolerance Verified 12/23/23 07:29 [From Sudafed] - can't take hexachlorophene AdvReac Rash Verified 12/23/23 07:29 [From Phisohex] dial soap Allergy Uncoded 12/20/23 07:47 Exam Const: Vital Signs, click to edit/add: Vital Signs - 24 hr 12/23/23 08:00 12/23/23 08:09 12/23/23 08:15 Temperature 97.8 F Pulse Rate 53 L 52 L 49 L Respiratory Rate 16 16 16 Blood Pressure 135/73 140/73 H 139/77 Pulse Oximetry 95 96 95 Oxygen Delivery Me thod Room Air Nasal Cannula Nasal Cannula Oxygen Flow Rate 2 2 12/23/23 11:35 12/23/23 11:40 12/23/23 11:45 Temperature 98.4 F Pulse Rate 58 L 50 L 56 L Respiratory Rate 17 16 16 Blood Pressure 133/70 135/74 134/73 Pulse Oximetry 95 92 93 Oxygen Delivery Me thod Oxygen Flow Rate 3 2 12/23/23 11:50 12/23/23 11:55 12/23/23 12:03 Temperature 98.5 F Pulse Rate 50 L 55 L 57 L Respiratory Rate 15 16 18 Blood Pressure 125/65 124/72 128/78 Pulse Oximetry 92 93 92 Oxygen Delivery Me thod Oxygen Flow Rate 1 12/23/23 12:10 12/23/23 12:10 12/23/23 12:15 Temperature 95.5 F L 95.5 F L 96.3 F L Pulse Rate 53 L 53 L 54 L Respiratory Rate 14 14 16 Blood Pressure 129/75 129/75 122/66 Pulse Oximetry 91 91 94 Oxygen Delivery Me thod Nasal Cannula Nasal Cannula Nasal Cannula Oxygen Flow Rate 1 1 1 Assessment and Plan Assessment and plan (1) Status post total left knee replacement: Problem comment: 12/23/23 Dr. [facility] medicine team is happy to follow the patient through to discharge. B.i.d. aspirin for prophylaxis of VTEs is appropriate. I will hold antihypertensives appropriately perioperatively. Status: Acute (2) Respiratory abnormality, unspecified: Problem comment: -COVID, RSV, influenza swab ordered. Portable chest ordered. Albuterol nebs ordered. Guaifenesin 1200 mg b.i.d. -likely viral as patient has been taking OTC cold meds for the last two weeks and improving by her report -is very mildly hypoxic in the 1st few hours postoperatively Status: Acute (3) HTN (hypertension): Problem comment: zestril and atenolol therapy - holding appropriately Status: Acute (4) [place] (hard of hearing): Status: Acute (5) Obesity (BMI 30-39.9): Status: Acute (6) Mild depression: Problem comment: prozac therapy Status: Acute
--- NOTE | 2023-12-23 14:45 | XR_ITS ---
Patient: JULIAN BROWN Facility:?[facility] Patient ID:?[id number] Site Patient ID:?[id number]. Site :?[id number] Study:?XRay-Chest 1 VIEW PORTABLE-12/23/2023 3:25:18 PM Ordering Physician:JUVE Final Report: Indication Cough, postop knee Technique One view(s) of the chest Comparison None Findings The cardiomediastinal silhouette and pulmonary vasculature are unremarkable. There is no focal airspace consolidation, pleural effusion, or pneumothorax. No displaced fractures. Impression No acute cardiopulmonary process. Dictated by Estevan Smith MD @ 12/23/2023 3:39:13 PM Signed by:?Estevan Smith MD @12/23/2023 3:39:13 PM (Electronic Signature)
[2023-12-23] MEDS: guaiFENesin 600 MG TAB.ER.12H 1200 MG PO ×2 (15:46→21:17)
[2023-12-23 15:50] LABS: PCR FLU A Negative PCR FLU A (Negative); PCR FLU B Negative PCR FLU B (Negative); PCR RSV Negative PCR RSV (Negative); SARS PCR* Negative SARS-CoV-2 (Negative)
--- NOTE | 2023-12-23 17:57 | PC.NURSE ---
End of Shift: Patient pleasant and cooperative, A&O. VSS, afebrile. Patient required 0.5-2 L O2 to maintain O2 above 90%, on RA now, tolerating it well. Patient reports pain on left knee rating less than 5 on 1-10 scale, managed with PRN medications, see MAR. Tolerating regular diet. Voided x1. 1 Assist with walker and gait belt.
[2023-12-23] MEDS: ASPIRIN 81 MG TABLET EC PO (21:17)
[2023-12-23] MEDS: SENNOSIDES 1 TAB TABLET 2 TAB PO (21:17)
[2023-12-24] MEDS: OXYCODONE 5 MG TABLET PO ×3 (01:07→08:34)
[2023-12-24] MEDS: ACETAMINOPHEN 500 MG TABLET 1000 MG PO ×2 (01:08→07:49)
[2023-12-24 03:00] VITALS: BP 153/76; PULSE 66; RESP 18; TEMP 36.6; O2SAT 96
[2023-12-24] MEDS: CEFAZOLIN 2 GM in 0.9 % SODIUM CHLORIDE Mini-bag 100 ML IVPB (05:06)
[2023-12-24 06:29] LABS: Basophils Percent Auto 0.1 % (0.0-3.0); Hematocrit 32.5 % (33.0-51.0); Hemoglobin* 10.5 gm/dL (12.0-16.0); Immature Granulocytes Pct Auto 0.2 %; Lymphocytes Percent Auto 5.5 % (20-44); Mean Corpuscular HGB Conc 32 gm/dL (32-36); Mean Corpuscular Hemoglobin 28 pg (26-34); Mean Corpuscular Volume 86 fL (80-100); Neutrophils Percent Auto 89.2 % (42.0-72.0); Platelet Count* 201 K/uL (140-440); RDW Coefficient of Variation % 13.2 % (11.5-15.5); Red Blood Count 3.76 m/uL (4.00-5.20); White Blood Count* 13.14 K/uL (4.50-11.00)
[2023-12-24 06:30] LABS: Slide Review Reflex No
[2023-12-24 06:40] LABS: Sodium* 138 mmol/L (135-149)
[2023-12-24 06:43] LABS: Creatinine* 0.5 mg/dL (0.5-1.5); Est. Creatinine Clearance* 43.07; Estimated Glomerular Filt Rate 97 ml/min
[2023-12-24 06:44] LABS: Blood Urea Nitrogen* 11 mg/dL (7-30)
[2023-12-24 07:00] VITALS: BP 142/74; PULSE 59; RESP 18; TEMP 36.4; O2SAT 92
--- NOTE | 2023-12-24 07:39 | PC.NURSE ---
19-: pleasant and cooperative. remained on RA throughout the night, O2 sats >90%. SBA with gb and walker, tolerates well. Dressing to knee CDI, small amount of bruising noted near dressing, active ice on.
[2023-12-24] MEDS: ASPIRIN 81 MG TABLET EC PO (08:34)
[2023-12-24] MEDS: FLUOXETINE HCL 20 MG CAPSULE PO (08:34)
[2023-12-24] MEDS: FLUOXETINE HCL 10 MG CAPSULE PO (08:34)
[2023-12-24] MEDS: guaiFENesin 600 MG TAB.ER.12H 1200 MG PO (08:34)
[2023-12-24] MEDS: PRAVASTATIN SODIUM 20 MG TABLET 40 MG PO (08:35)
[2023-12-24] MEDS: SENNOSIDES 1 TAB TABLET 2 TAB PO (08:35)
--- NOTE | 2023-12-24 11:01 | PM.ORPN ---
Subjective Subjective Date Seen: 12/24/23 Principal diagnosis: Status postop day 1 left total knee arthroplasty Interval history: Patient reports doing well. No acute events over night. Pain managed with scheduled and PRN medications, ice. DVT prophylaxis: 81 mg aspirin by mouth twice daily, SCDs, walking. Denies fevers, chills, aches, N/V, CP, SOB/VAL[place], or lightheadedness. Passing flatus. Denies any jaw discomfort or throat discomfort. Comments that she has had a viral cold for the past 2 weeks. This has resulted in a dry cough. Occasionally she gets breathing spasms with this cough. She also notes that if if she eats/drinks incorrectly, she can have a spasm in her breathing and then becomes anxious regarding this. She has an albuterol rescue inhaler that she is nervous to use. Has not been assessed with the subdural or her pulmonary status for a few years per patient. States that when she has these events, she is unsure how to use her inhaler. Ortho Exam Narrative Exam Narrative: -Patient appears comfortable; no apparent acute distress -Alert and oriented times 3 -Operative knee mildly swollen; soft tissues supple; no ecchymosis; no erythematous streaking Warmth appropriate -Surgical dressing clean, dry, intact; no drainage -Bilateral calfs soft; no significant swelling, edema, tenderness, erythema, discoloration, warmth, or palpable cords -2+ DP/PT pulses, intact dermatomes and myotomes distally (5/5 strength) Const Vital Signs, click to edit/add: Vital Signs - 24 hr 12/23/23 11:35 12/23/23 11:40 12/23/23 11:45 Temperature 98.4 F Pulse Rate 58 L 50 L 56 L Pulse Rate [Pulse Oximeter] Respiratory Rate 17 16 16 Blood Pressure 133/70 135/74 134/73 Blood Pressure [Left Arm] Pulse Oximetry 95 92 93 Oxygen Delivery Method Oxygen Flow Rate 3 2 12/23/23 11:50 12/23/23 11:55 12/23/23 12:03 Temperature 98.5 F Pulse Rate 50 L 55 L 57 L Pulse Rate [Pulse Oximeter] Respiratory Rate 15 16 18 Blood Pressure 125/65 124/72 128/78 Blood Pressure [Left Arm] Pulse Oximetry 92 93 92 Oxygen Delivery Method Oxygen Flow Rate 1 12/23/23 12:10 12/23/23 12:10 12/23/23 12:15 Temperature 95.5 F L 95.5 F L 96.3 F L Pulse Rate 53 L 53 L 54 L Pulse Rate [Pulse Oximeter] Respiratory Rate 14 14 16 Blood Pressure 129/75 129/75 122/66 Blood Pressure [Left Arm] Pulse Oximetry 91 91 94 Oxygen Delivery Method Nasal Cannula Nasal Cannula Nasal Cannula Oxygen Flow Rate 1 1 1 12/23/23 12:30 12/23/23 12:45 12/23/23 13:00 Temperature 96.8 F L 96.8 F L 96.6 F L Pulse Rate 56 L 52 L 51 L Pulse Rate [Pulse Oximeter] Respiratory Rate 16 14 16 Blood Pressure 123/66 112/66 120/63 Blood Pressure [Left Arm] Pulse Oximetry 93 93 88 Oxygen Delivery Method Nasal Cannula Nasal Cannula Nasal Cannula Oxygen Flow Rate 1 1 2 12/23/23 13:30 12/23/23 14:00 12/23/23 15:00 Temperature 96.7 F L 97.5 F L Pulse Rate 50 L 54 L 52 L Pulse Rate [Pulse Oximeter] Respiratory Rate 12 14 Blood Pressure 120/57 L 121/58 L 90/68 Blood Pressure [Left Arm] Pulse Oximetry 96 95 Oxygen Delivery Method Nasal Cannula Nasal Cannula Oxygen Flow Rate 2 0.5 12/23/23 15:16 12/23/23 15:17 12/23/23 15:17 Temperature Pulse Rate Pulse Rate [Pulse Oximeter] 57 L Respiratory Rate Blood Pressure Blood Pressure [Left Arm] Pulse Oximetry 91 91 Oxygen Delivery Method Nasal Cannula Oxygen Flow Rate 0.5 12/23/23 16:00 12/23/23 17:00 12/23/23 18:58 Temperature 97.6 F 96.6 F L 97.6 F Pulse Rate 55 L 51 L 57 L Pulse Rate [Pulse Oximeter] Respiratory Rate 16 14 14 Blood Pressure 116/55 L 129/61 122/69 Blood Pressure [Left Arm] Pulse Oximetry 91 92 92 Oxygen Delivery Method Nasal Cannula Nasal Cannula Room Air Oxygen Flow Rate 0.5 0.5 12/23/23 19:00 12/23/23 23:00 12/23/23 23:00 Temperature 97.9 F Pulse Rate Pulse Rate [Pulse Oximeter] 60 57 L Respiratory Rate 16 16 Blood Pressure Blood Pressure [Left Arm] 129/65 Pulse Oximetry 93 93 Oxygen Delivery Method Room Air Oxygen Flow Rate 12/23/23 23:00 12/23/23 23:00 12/24/23 03:00 Temperature 97.8 F 97.9 F Pulse Rate Pulse Rate [Pulse Oximeter] 57 L 66 Respiratory Rate 16 16 18 Blood Pressure Blood Pressure [Left Arm] 146/72 H 153/76 H Pulse Oximetry 96 96 96 Oxygen Delivery Method Room Air Room Air Room Air Oxygen Flow Rate 12/24/23 07:00 12/24/23 07:00 12/24/23 07:00 Temperature 97.6 F Pulse Rate Pulse Rate [Pulse Oximeter] 59 L Respiratory Rate 18 18 Blood Pressure Blood Pressure [Left Arm] 142/74 H Pulse Oximetry 92 92 92 Oxygen Delivery Method Room Air Room Air Oxygen Flow Rate 12/24/23 07:00 Temperature Pulse Rate Pulse Rate [Pulse Oximeter] 59 L Respiratory Rate 18 Blood Pressure Blood Pressure [Left Arm] Pulse Oximetry Oxygen Delivery Method Oxygen Flow Rate Assessment and Plan Assessment and plan (1) Status post total left knee replacement: Problem details: 12/23/23 [facility] medicine team is happy to follow the patient through to discharge. B.i.d. aspirin for prophylaxis of VTEs is appropriate. I will hold antihypertensives appropriately perioperatively. Status: Acute (2) Respiratory abnormality, unspecified: Problem details: -COVID, RSV, influenza swab ordered. Portable chest ordered. Albuterol nebs ordered. Guaifenesin 1200 mg b.i.d. -likely viral as patient has been taking OTC cold meds for the last two weeks and improving by her report -is very mildly hypoxic in the 1st few hours postoperatively Status: Acute (3) HTN (hypertension): Problem details: zestril and atenolol therapy - holding appropriately Status: Acute (4) [place] (hard of hearing): Status: Acute (5) Obesity (BMI 30-39.9): Status: Acute (6) Mild depression: Problem details: prozac therapy Status: Acute Plan - Complete 23 hour perioperative antibiotics. - PT/OT consult for education and assistance. - Social work consult for discharge planning - Prescribed analgesics as needed - DVT prophylaxis: 81 mg aspirin by mouth twice daily and SCDs - Anticipation is for discharge to home with family today, 12/24/2023 if the patient remains medically stable, pain is controlled, and they are safe with mobilization. - Spoke with hospitalist regarding her rescue inhaler. Recommend use of spacer or chamber to ensure she is delivered the entire medication when needed. In my opinion, with her current viral cold, and seasonal allergies, she may need to use his rescue inhaler. She should receive some education on use of his inhaler during this hospital stay. Unfortunately, she does not have her inhaler with her. Spoke with charge nurse Cecelia, who will provide patient with a spacer that she can use. She should talk to her PCP regarding prescription for an inhaler chamber. Strongly encouraged patient to use her inhaler if she is having breathing issues such as the wheezing she experiences periodically. Informed patient that with albuterol use, she may feel jittery, experience heart palpitations and mildly more anxious due to the side effects from albuterol. She states understanding.
--- NOTE | 2023-12-24 12:04 | PC.NURSE ---
Discharge: Patient pleasant and cooperative, A&O. VSS, afebrile. SpO2 maintained above 90% on RA. Tolerating regular diet. SBA. Discharge instructions given to patient, on diet, activity, medications, IS, and albuterol inhaler, all questions answered. IV removed with tip intact. Discharged to home with family.
== END 2023-12-24 11:29 | disposition home or self-care (01) ==
LOC: OR 07:01 → MEDSURG 07:02
PROVIDERS: Family Medicine; PCP Family Medicine; Visit Provider Orthopaedic Surgery Sports Medicine
PROC: (CPT 27447; principal; 2023-12-23 08:15)
DX: M17.12 Unilateral primary osteoarthritis, left knee (principal); G89.18 Other acute postprocedural pain; J95.88 Other intraoperative complications of respiratory system, not elsewhere classified; R09.02 Hypoxemia; J00 Acute nasopharyngitis [common cold]; J98.01 Acute bronchospasm; E66.01 Morbid (severe) obesity due to excess calories; Z68.36 Body mass index [BMI] 36.0-36.9, adult; K21.9 Gastro-esophageal reflux disease without esophagitis; H90.3 Sensorineural hearing loss, bilateral; I10 Essential (primary) hypertension; F32.A Depression, unspecified; E78.5 Hyperlipidemia, unspecified
CPT/HCPCS: 27447; 01402; 36415; 64447; 64454; 71045; 73560; 76942; 82565; 84132; 84295; 84520; 85025; 87631; 97110; 97116; 97161; 97165; 97530; 99100; A9270; C1776; J0171; J0330; J0690; J1100; J1170; J2250; J2704; J2795; J3010; J3490; J7120

== ENCOUNTER 2024-03-05 13:00 | Outpatient (RCR) | payer MEDICARE, OTHER, SELFPAY ==
--- NOTE | 2023-12-18 12:32 | PT.OPE ---
PT [place] Outpatient Eval PT [facility] Outpatient Eval Start: 12/17/23 14:56 Freq: Status: Active Protocol: Document 12/17/23 21:28 SUMIT (Rec: 12/17/23 21:30 CJ Ed's MacBook Pro) E-signed By Espinoza Nieto DPT, MS Physical Therapy Outpatient Evaluation Insurance Information Recert Due Date 03/16/24 Insurance Name Medicare B Medical Diagnosis Pre-op left total knee arthroplasty Treating Diagnosis L knee pain, decreased L knee ROM, decreased L LE flexibility and strength, and gait dysfunction Subjective Subjective Pt is a 78 y.o. female who presents to PT prior to L TKA on 12/23/23 at [facility]. Has struggled with chronic L knee pain and weakness over the past year. Cortisone injections and PT helped decrease pain levels but she continues to struggle with jenni to standing, walking and WBing activities. Wants to address her knee issues now since she knows it will get more difficult as she gets older. Lives in a single-story home with her and 38 yr old daughter. 2 steps to enter with a railing with grab bars in the bathroom. Has not performed her previous PT HEP over the past 2 weeks due to an illness. Owns a SPC and may have a FWW from her ?s previous TKA. Will check this week to see if they have a walker this week. PMH includes L knee end stage OA, depression and HTN. AGGR factors: walking, stair climbing, standing, uneven surfaces, carrying objects. ALLEV factors: ice, Advil, rest. Pt hopes to return to walking for exercise and performing daily activities with less pain. Pain Comments 4-5 Current Work Status Retired Precautions Weight Bearing Status Weight Bear as Tolerated Therapy Limitations/Systems Review Not Limited Objective Functional Test Performed & Score LEFS: 6 Assessment Assessment/Impression Objectively pt displays decreased B (L>R) LE flexibility and ROM, imbalance , gait dysfunction, deconditioning and B LE weakness. Good quality of quad set with knee L ROM 0-6-124 deg. Pt motivated to increase activity levels following surgery which have been limited by pain. She will benefit from continued skilled PT intervention to address these limitations, returning following her L TKA on 12/23/23 . Plan of Care Rehabilitation Potential Excellent Physical Therapy Goals By end of session today, patient will... Demonstrate appropriate gait pattern with FWW to utilize post-surgery for optimal safety when ambulating Verbalize understanding of most appropriate home set up including needed equipment for optimal safety and recovery post-surgery Be independent in HEP program to show ability to perform appropriate exercises post- surgery Following surgery: Short-term goals to be completed in 4 weeks: 1.Pt will display improved L knee passive ROM > 0-0-120 deg to improve quality of stair climbing. 2.Pt will display improved L LE strength as evidenced by ability to perform >10 SLR of good quality to improve quality of gait and progress to ambulation with single point cane. 3.Pt will report waking <3 times per night due to L knee pain to improve quality of sleep. Long-term goals to be completed in 12 weeks: 1.Pt will be independent and compliant with HEP for intermediate frame tender sx management 2.Pt will display improved L hip flex, hip ABD, quad and hamstring strength >4/5 to improve quality of gait without assistive device. 3.Pt will display improved mechanics going up<>down >2 steps with a reciprocal pattern using 1 railing to safely enter her home. 4.Pt report >75% improvement in LEFS questionnaire to significantly improve jenni to daily activities. Coordination/Communication With Referral Source Treatment Plan/Direct Interventions Gait Training,Ice/Cold/ Vasopneumatic,Joint Mobilization,Manual Therapy, Neuromuscular Re-ed, Therapeutic Activities, Therapeutic Exercises Frequency/Duration 1 pre-op visit then 2x per week for 16-20 visits following surgery Patient Will Be Discharged From Therapy Completion of LTG(s),Skills Plateau,Independent w/HEP, Independently Progressing Evaluation Billing Untimed Code Treatment Minutes 24 Complexity Moderate Certification Information Initial Certification Date 12/17/23 Ending Certification Date 03/16/24 Provider Signature Shows Agreement With POC & Medical Necessity Physician Signature & Date Requested Please Sign/Date Here Physician Comment/Change : Physician NPI Number #
== END 2024-03-09 09:21 | disposition home or self-care (01) ==
PROVIDERS: PCP Family Medicine; Visit Provider Orthopaedic Surgery Sports Medicine
DX: M17.12 Unilateral primary osteoarthritis, left knee (principal); Z51.89 Encounter for other specified aftercare
CPT/HCPCS: 97110; 97116; 97140; 97162; 97164